=== PATIENT | male | born 1980 | race American Indian/Alaskan Native ===

== ENCOUNTER 2017-11-05 11:39 | Emergency (ER) | payer OTHER ==
[2017-11-05 12:01] VITALS: BP 117/81
--- NOTE | 2017-11-05 13:42 | Cat Scan Report ---
FINAL REPORT EXAM: CT HEAD/BRAIN WO CON HISTORY: head injury TECHNIQUE: CT examination of the head without IV contrast PRIORS: None. FINDINGS: Moderate mucosal thickening left frontal sinus with suggestion of fluid level. The other paranasal sinuses are clear as are the mastoid air cells and middle ear cavities. Bone windows demonstrate no acute fracture. The brain is without mass, mass effect, hemorrhage, or acute infarct. There is no extra-axial intracranial bleed, brain bleed, or midline shift. The ventricles and sulci are age-appropriate. IMPRESSION: No acute CVA, intracranial bleed, or brain mass Nonspecific mucosal thickening with suggestion of fluid level in left frontal sinus. This may be posttraumatic effusion or hemorrhage. Differential includes acute sinusitis
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
[2017-11-05] MEDS ORDERED: TYLENOL PO ONE (14:25)
[2017-11-05] MEDS ORDERED: MOTRIN PO ONE (14:25)
== END 2017-11-05 14:36 | disposition home or self-care (01) ==
LOC: ED 11:39
DX: G44.209 Tension-type headache, unspecified, not intractable (principal); W22.8XXA Striking against or struck by other objects, initial encounter; Y93.89 Activity, other specified; Y99.0 Civilian activity done for income or pay; Y92.69 Other specified industrial and construction area as the place of occurrence of the external cause
CPT/HCPCS: 70450